=== PATIENT | female | born 1945 | race Caucasian/White ===

== ENCOUNTER 2023-09-25 12:45 | Outpatient (CLI) | payer MEDICARE, BC ==
[2023-09-25] MEDS ORDERED: iohexol 350MG/ML 100ml bottle IV ONE (13:13)
== END 2023-09-25 23:59 | disposition home or self-care (01) ==
LOC: 64 CT 12:45
PROVIDERS: ATTEND Internal Medicine Interventional Cardiology
DX: I65.23 Occlusion and stenosis of bilateral carotid arteries (principal); I42.9 Cardiomyopathy, unspecified; I70.213 Atherosclerosis of native arteries of extremities with intermittent claudication, bilateral legs
CPT/HCPCS: 75572; J3490; Q9967

== ENCOUNTER 2023-11-29 18:24 | Emergency (ER) | payer MEDICARE, BC ==
[~2023-11-29] VITALS: Ht 162.6 cm; Wt 104.5 kg
[2023-11-29 19:16] VITALS: TEMP 97.5
[2023-11-29 20:45] LABS: ALANINE AMINOTRANSFERASE 16 U/L (12-78); ALBUMIN 3.4 G/DL (3.4-5.0); ALBUMIN/GLOBULIN RATIO 0.7 (1.1-1.5); ALKALINE PHOSPHATASE 101 IU/L (46-116); ANION GAP 7 (8-16); ASPARTATE AMINO TRANSFERASE 11 U/L (10-37); BILIRUBIN,TOTAL 0.5 MG/DL (0.1-1.0); BLOOD UREA NITROGEN 32 MG/DL (7-18); BUN/CREATININE RATIO 26.4 (10.0-20.0); CALCIUM 9.3 MG/DL (8.5-10.1); CHLORIDE 106 MMOL/L (99-107); CREATININE 1.21 MG/DL (0.40-0.90); GLUCOSE 159 MG/DL (70-104); SODIUM 134 MMOL/L (135-145); TOTAL CARBON DIOXIDE 21.1 MMOL/L (24-32); TOTAL PROTEIN 8.1 G/DL (6.4-8.2); eCRCL 34 ML/MIN; eGFR 43 ML/MIN
[2023-11-29 20:56] LABS: POTASSIUM 6.8 MMOL/L (3.5-5.1)
[2023-11-29 21:39] VITALS: BP 155/98; PULSE 98; RESP 12; O2SAT 94
[2023-11-29] MEDS: HYDROmorphone 1 mg/ml syringe IV ONE (21:43)
== END 2023-11-29 21:45 | disposition left against medical advice (07) ==
LOC: ER 18:25
DX: T82.838A Hemorrhage due to vascular prosthetic devices, implants and grafts, initial encounter (principal); M79.602 Pain in left arm; I95.9 Hypotension, unspecified; Z88.8 Allergy status to other drugs, medicaments and biological substances
CPT/HCPCS: 36415; 80053; 93005; 93931; 99285